=== PATIENT | female | born 1985 | race Caucasian/White ===

== ENCOUNTER → 2017-03-19 14:22 | Outpatient (CLI) | payer BC | END | disposition home or self-care (01) | LOC: D.US 14:00 → D.NM 16:00 | DX: R10.9 Unspecified abdominal pain (principal) ==

== ENCOUNTER → 2018-01-25 09:47 | Outpatient (CLI) | payer BC | END | disposition home or self-care (01) | LOC: D.LDO 09:47 | DX: O21.9 Vomiting of pregnancy, unspecified (principal); Z3A.00 Weeks of gestation of pregnancy not specified ==

== ENCOUNTER → 2018-04-10 10:14 | Outpatient (CLI) | payer BC ==
[2018-04-10 11:35] LABS: APPEARANCE CLOUDY (CLEAR); BILIRUBIN NEGATIVE (NEGATIVE); COLOR YELLOW (YELLOW); GLUCOSE NEGATIVE (NEGATIVE); KETONE NEGATIVE (NEGATIVE); NITRITE NEGATIVE (NEGATIVE); PROTEIN NEGATIVE (NEGATIVE); UROBILINOGEN NORMAL (NORMAL)
[2018-04-10 11:37] LABS: BACTERIA MANY /hpf (NONE SEEN); MUCUS <1+ /lpf (NONE SEEN); RED CELLS - URINE RARE /hpf (0-5)
[2018-04-10 11:40] LABS: BASOPHILS 0.1 % (0-2); EOSINOPHILS 1.1 % (0-7); HEMATOCRIT 33.9 % (36.0-48.0); IMMATURE GRANULOCYTES 0.4 % (0-5); LYMPHOCYTES 22.4 % (15-50); MCH 31.4 pg (26.0-34.0); MCHC 35.4 g/dL (31.0-37.0); MCV 88.7 fL (80.0-100.0); MEAN PLATELET VOLUME 9.6 fL (7.4-10.4); MONOCYTES 7.6 % (2-11); NEUTROPHILS 68.4 % (40-80); PLATELET COUNT 350 10x3/uL (130-400); RBC 3.82 10x6/uL (4.00-5.40); RDW 12.6 % (11.5-14.5); WBC 8.6 10x3/uL (4.8-10.8)
== END | disposition home or self-care (01) ==
LOC: D.LDO 10:14
PROVIDERS: Obstetrics & Gynecology
DX: O26.892 Other specified pregnancy related conditions, second trimester (principal); Z3A.21 21 weeks gestation of pregnancy; M54.5 Low back pain; R10.30 Lower abdominal pain, unspecified

== ENCOUNTER → 2018-04-23 10:18 | Outpatient (CLI) | payer BC ==
[2018-04-23 11:48] LABS: APPEARANCE HAZY (CLEAR); BACTERIA MODERATE /hpf (NONE SEEN); BILIRUBIN NEGATIVE (NEGATIVE); COLOR YELLOW (YELLOW); EPITHELIAL CELLS 0-5 /hpf (0-5); GLUCOSE NEGATIVE (NEGATIVE); KETONE NEGATIVE (NEGATIVE); MUCUS <1+ /lpf (NONE SEEN); NITRITE NEGATIVE (NEGATIVE); PROTEIN NEGATIVE (NEGATIVE); SPECIFIC GRAVITY 1.005 (1.005-1.020); UROBILINOGEN NORMAL (NORMAL); WHITE CELLS - URINE 0-5 /hpf (0-5)
== END | disposition home or self-care (01) ==
LOC: D.LDO 10:18
PROVIDERS: Obstetrics & Gynecology
DX: O26.899 Other specified pregnancy related conditions, unspecified trimester (principal); Z3A.00 Weeks of gestation of pregnancy not specified

== ENCOUNTER → 2018-05-15 14:57 | Outpatient (CLI) | payer BC ==
[2018-05-15 16:59] LABS: MCH 30.7 pg (26.0-34.0); MCHC 34.4 g/dL (31.0-37.0); MCV 89.4 fL (80.0-100.0); MEAN PLATELET VOLUME 9.8 fL (7.4-10.4); RBC 3.58 10x6/uL (4.00-5.40); RDW 12.8 % (11.5-14.5); WBC 12.2 10x3/uL (4.8-10.8)
[2018-05-15 17:06] LABS: CALC OSMOLALITY 268 mosm/kg (275-300); CALCIUM 8.6 mg/dL (8.5-10.1); CARBON DIOXIDE 24.6 mmol/L (21.0-32.0); CHLORIDE - SERUM 102 mmol/L (98-107); CREATININE - SERUM 0.5 mg/dL (0.6-1.3); GLUCOSE 65 mg/dL (74-106); SODIUM 137 mmol/L (136-145); UREA NITROGEN 4 mg/dL (7-18); eGFR NON AFRICAN AMERICAN > 90 mL/min (90-120)
== END | disposition home or self-care (01) ==
LOC: D.LDO 14:57
PROVIDERS: Obstetrics & Gynecology
DX: O26.899 Other specified pregnancy related conditions, unspecified trimester (principal); Z3A.00 Weeks of gestation of pregnancy not specified

== ENCOUNTER → 2018-05-30 12:23 | Outpatient (CLI) | payer BC ==
[~2018-05-30 12:23] MED LIST: MOBIC7.5 MG PO; OXYCODONE-APAP1 T10 PO; PEPCID40 MG PO
[2018-06-03 20:37] VITALS: BMI 31.7
== END | disposition home or self-care (01) ==
LOC: D.LDO 12:23
DX: O26.899 Other specified pregnancy related conditions, unspecified trimester (principal); Z3A.00 Weeks of gestation of pregnancy not specified

== ENCOUNTER → 2018-05-31 09:42 | Outpatient (CLI) | payer BC ==
[~2018-05-31 09:42] MED LIST changes: -MOBIC7.5 MG PO; -OXYCODONE-APAP1 T10 PO
== END | disposition home or self-care (01) ==
LOC: D.LDO 09:42
DX: O26.899 Other specified pregnancy related conditions, unspecified trimester (principal); Z3A.00 Weeks of gestation of pregnancy not specified

== ENCOUNTER 2018-06-03 09:57 | Inpatient (IN) | payer BC ==
[~2018-06-03] VITALS: Ht 160 cm; Wt 81.2 kg
[2018-06-03 11:44] LABS: BASOPHILS 0.2 % (0-2); EOSINOPHILS 0.3 % (0-7); HEMATOCRIT 31.7 % (36.0-48.0); HEMOGLOBIN 10.8 g/dL (12-16); IMMATURE GRANULOCYTES 0.5 % (0-5); LYMPHOCYTES 19.7 % (15-50); MCHC 34.1 g/dL (31.0-37.0); MCV 88.1 fL (80.0-100.0); MEAN PLATELET VOLUME 10.2 fL (7.4-10.4); MONOCYTES 12.3 % (2-11); PLATELET COUNT 326 10x3/uL (130-400); RDW 12.4 % (11.5-14.5); WBC 13.1 10x3/uL (4.8-10.8)
[2018-06-03 12:02] LABS: ALBUMIN 2.3 g/dL (3.4-5.0); BILIRUBIN - DIRECT 0.06 mg/dL (0.00-0.30); BILIRUBIN - INDIRECT 0.08 mg/dL (0.00-1.00); BILIRUBIN - TOTAL 0.14 mg/dL (0.2-1.3); PROTEIN - SERUM 6.5 g/dL (6.4-8.2); URIC ACID 5.2 mg/dL (2.6-7.2)
[2018-06-03 12:17] LABS: APPEARANCE CLEAR (CLEAR); BILIRUBIN NEGATIVE (NEGATIVE); COLOR STRAW (YELLOW); GLUCOSE NEGATIVE (NEGATIVE); KETONE NEGATIVE (NEGATIVE); NITRITE NEGATIVE (NEGATIVE); PROTEIN NEGATIVE (NEGATIVE); SPECIFIC GRAVITY 1.005 (1.005-1.020); UROBILINOGEN NORMAL (NORMAL)
[2018-06-03 15:28] LABS: BASOPHILS 0.1 % (0-2); EOSINOPHILS 0.2 % (0-7); HEMATOCRIT 32.8 % (36.0-48.0); HEMOGLOBIN 11.6 g/dL (12-16); IMMATURE GRANULOCYTES 0.5 % (0-5); LYMPHOCYTES 13.3 % (15-50); MCH 30.8 pg (26.0-34.0); MCHC 35.4 g/dL (31.0-37.0); MEAN PLATELET VOLUME 10.2 fL (7.4-10.4); MONOCYTES 7.9 % (2-11); PLATELET COUNT 342 10x3/uL (130-400); RBC 3.77 10x6/uL (4.00-5.40); RDW 12.7 % (11.5-14.5); WBC 14.3 10x3/uL (4.8-10.8)
[2018-06-03 17:14] VITALS: BP 129/71
[2018-06-03 20:37] VITALS: BP 127/75; Ht 160 cm; Wt 81.2 kg
[2018-06-03] MEDS ORDERED: PEPCID40 MG PO (21:07)
[2018-06-04] VITALS (7 sets, daily range): BP systolic 112–133; BP diastolic 60–83
--- NOTE | 2018-06-04 10:40 | OP ---
PATIENT NAME: HERNAN WOODS MEDICAL RECORD: [id number] :86 LOCATION:[id number] ADMISSION DATE:06/03/18 SURGEON: HUEY ORTEGA MD DATE OF OPERATION: 06/03/2018 PREOPERATIVE DIAGNOSES: 1. at 29 weeks' gestation. 2. Nonreassuring surveillance. 3. -induced hypertension. POSTOPERATIVE DIAGNOSES: 1. at 29 weeks' gestation. 2. Nonreassuring surveillance. 3. -induced hypertension. 4. Meconium stained fluid. 5. Nuchal cord. PROCEDURE: Primary low transverse section. SURGEON: Huey Ortega MD CITY CARRIER ASSISTANT: Dr. Lara CAREER DEVELOPMENT MANAGER: Ralph Millan. ANESTHESIOLOGIST: Dr. Sena ANESTHETIC: General. FINDINGS: Viable female infant and light meconium-stained fluid found in a back down transverse lie. Weight 950 grams. Uterine anatomy was unremarkable as well as the tubes and ovaries. SPECIMENS REMOVED: Placenta. SPECIMEN DISPOSITION: Pathology. ESTIMATED BLOOD LOSS: 600 cc. FLUIDS: 1200 cc of normal saline. URINE OUTPUT: 100 cc of clear urine. COMPLICATIONS: None. DRAIN: Horta to gravity. INDICATIONS: The patient is a multiparous female with prior delivery at 25 weeks. The patient is currently at 29 weeks, being observed for borderline growth with NST. The patient had repetitive late decelerations and a prolonged decel. The patient also had a biophysical profile of 04/10. The patient is considered for urgent section and any indicated procedure. DESCRIPTION OF PROCEDURE: After informed consent was given, the patient was taken to the operating room where anesthetic was obtained for rapid sequence OPERATIVE REPORT [id number] HERNAN WOODS induction. Upon release, a low transverse incision was made on the abdomen, carried to the underlying layer of the fascia, which was opened in the midline with scalpel and extended laterally with Alfonso scissors. The rectus bellies were dissected free superiorly and inferiorly and then in the midline. A DeLee all-purpose retractor was now inserted after opening the peritoneum and low transverse hysterotomy was performed. The infant was found to be from breech into a transverse back down position and the uterine incision was T'd. After delivery of the infant, the cord was doubly clamped and cut and infant was passed to the attendant. The placenta was delivered via Crede maneuver. Uterus exteriorized, cleared of all clot and debris. The uterus was now closed in a running locked fashion with chromic stitch. After this had been performed, pelvis was irrigated and irrigant removed. Uterus was returned to the abdomen and inspection of the hysterotomy reveals adequate hemostasis. Fascia was now closed in a running fashion. After closure of the fascia, subcutaneous tissues inspected. Bleeding vessels cauterized, and the skin was reapproximated with chandni. Sponge, lap and needle count was correct times 2 at the close of this procedure, but due to the urgency, x-ray was performed and is unremarkable. TRANSINT:[id number] Voice Confirmation ID: [id number] DOCUMENT ID: [id number] HUEY ORTEGA MD at 1040 CC: [id number] DICTATION DATE: 06/04/18605 [employer]OL [employer] ATTENDANT: 06/04/18 0859 ADM IN [facility] [address] [place] [address]
[2018-06-05] MEDS ORDERED: MOBIC7.5 MG PO (07:51)
[2018-06-05] MEDS ORDERED: OXYCODONE-APAP1 T10 PO (07:52)
== END 2018-06-05 08:20 | disposition home or self-care (01) | DRG 788 ==
LOC: D.LDO 09:57 → D.SDCHOLD 15:59 → D.LD 15:59
PROVIDERS: ADMIT Obstetrics & Gynecology
PROC: 10D00Z1 Extraction of Products of Conception, Low, Open Approach (ICD-10-PCS; principal; 2018-06-03 15:50)
DX: O76 Abnormality in fetal heart rate and rhythm complicating labor and delivery (principal); Z3A.29 29 weeks gestation of pregnancy; Z37.0 Single live birth; O13.4 Gestational [pregnancy-induced] hypertension without significant proteinuria, complicating childbirth; O69.81X0 Labor and delivery complicated by cord around neck, without compression, not applicable or unspecified; O77.0 Labor and delivery complicated by meconium in amniotic fluid

== ENCOUNTER 2019-09-24 15:04 | Outpatient (CLI) | payer BC ==
[~2019-09-24] VITALS: Ht 160 cm; Wt 81.8 kg
[~2019-09-24 15:04] MED LIST changes: +MOBIC7.5 MG PO; +OXYCODONE-APAP1 T10 PO
--- NOTE | 2019-09-24 15:15 | NUR ---
CALL TO UNIT REC'D FROM [place] IN [facility] TO FIND OUT IF PT HAS FULL BLADDER, INFORMED THAT PT HAD EMPTIED BLADDER UPON ARRIVAL TO UNIT. [place] SNACHEZ RN PROVIDED PT WITH GLASS OF WATER AND STATES THAT SHE WILL COME TO UNIT AT 1600 TO BRING PT TO [facility]/S.
[2019-09-24 15:31] VITALS: BP 122/68; Ht 160 cm; Wt 81.8 kg
--- NOTE | 2019-09-24 16:10 | NUR ---
[place] WITH [facility] ON UNIT. PT OFF UNIT WITH [facility]/S VIA W/C. REPORTS INCREASED PAIN WHEN GOING FROM LAYING TO STANDING.
--- NOTE | 2019-09-24 17:04 | NUR ---
REC'D BACK TO UNIT FROM [facility]/S. CONTINUES TO C/O LLQ AND LEFT SIDED PELVIC PAIN, CONSTANT, SHARP AND STABBING AT TIMES "THEN IT STARTS CRAMPING." RATES PAIN 5-6/10, DENIES NEED FOR INTERVENTION. WATER REMOVED FROM ROOM. BED IN LOW POSITION WITH SRUP X2. CALL LIGHT AND PHONE WITHIN REACH. WILL CONTINUE TO MONITOR.
--- NOTE | 2019-09-24 17:12 | NUR ---
REPORT CALLED TO DR. ORTEGA WITH [facility] REPORT. ORDERS REC'D TO D/C PT HOME WITH INSTRUCTIONS TO RETURN TO ER WITH ANY BLEEDING OR WORSENING PAIN.
--- NOTE | 2019-09-24 17:30 | NUR ---
DISCHARGE INSTRUCTIONS REVIEWED WITH PT WITH REINFORCEMENT GIVEN REGARDING RETURNING TO LAB FOR ORDERED LAB DRAW TO BE DONE ON 09/26/19 AT 1300, VERBALIZES UNDERSTANDING. AMBULATORY OFF UNIT, DENIES NEED FOR W/C OFF UNIT, STEADY GAIT NOTED
== END 2019-09-24 17:30 | disposition home or self-care (01) ==
LOC: D.LDO 15:04
PROVIDERS: ATTEND Obstetrics & Gynecology
DX: O09.90 Supervision of high risk pregnancy, unspecified, unspecified trimester (principal)

== ENCOUNTER → 2019-09-26 13:00 | Outpatient (CLI) | payer BC ==
[2019-09-24 15:31] VITALS: BMI 31.9
[~2019-09-26 13:00] MED LIST changes: +PERCOCET 7.5/321 TAB PO; +TORADOL10 MG PO
== END | disposition home or self-care (01) ==
LOC: D.LAB 13:00 → D.LABREF 14:45
PROVIDERS: ATTEND Obstetrics & Gynecology
DX: O09.90 Supervision of high risk pregnancy, unspecified, unspecified trimester (principal); Z3A.00 Weeks of gestation of pregnancy not specified

== ENCOUNTER 2019-09-28 13:40 | Outpatient (CLI) | payer BC ==
[2019-09-24 15:31] VITALS: BMI 31.9
[~2019-09-28 13:40] MED LIST changes: -PERCOCET 7.5/321 TAB PO; -TORADOL10 MG PO
[2019-09-29] MEDS ORDERED: TORADOL10 MG PO (20:32)
[2019-09-29] MEDS ORDERED: PERCOCET 7.5/321 TAB PO (20:33)
== END 2019-09-28 14:02 | disposition home or self-care (01) ==
LOC: D.LDO 13:40
PROVIDERS: ATTEND Obstetrics & Gynecology
DX: O26.899 Other specified pregnancy related conditions, unspecified trimester (principal); Z3A.00 Weeks of gestation of pregnancy not specified; R10.9 Unspecified abdominal pain

== ENCOUNTER 2019-09-29 13:26 | Day surgery (SDC) | payer BC ==
[~2019-09-29] VITALS: Ht 160 cm; Wt 82.7 kg
--- NOTE | ~2019-09-29 | OP ---
PATIENT NAME: HERNAN WOODS MEDICAL RECORD: [id number] :86 LOCATION:D[facility] ADMISSION DATE: SURGEON: ABHIJEET ORTEGA MD DATE OF OPERATION: 09/29/2019 DATE OF SERVICE: 09/29/2019 PREOPERATIVE DIAGNOSES: 1. Suspected ectopic. 2. Undesired fertility. POSTOPERATIVE DIAGNOSES: 1. Right ectopic . 2. Unwanted fertility. 3. Left simple cyst. PROCEDURE PERFORMED: 1. Diagnostic laparoscopy. 2. Cystotomy. 3. Bilateral salpingectomy. SURGEON: Abhijeet Ortega MD DENTAL HYGIENIST MOBILE COORDINATOR: Sachin Ngo. ANESTHESIOLOGIST: Dr. Valiente. ANESTHESIA: General. FINDINGS: There is a left simple cyst approximately 3-4 cm. The left tube was unremarkable as well as the uterus and ovaries. What was visualized of the abdominal anatomy was unremarkable. A small isthmic ectopic was identified. There was minimal blood in the pelvis and abdomen. SPECIMENS REMOVED: Bilateral tube. SPECIMEN DISPOSITION: Pathology. ESTIMATED BLOOD LOSS: Minimal. FLUIDS: 1000 cc lactated Ringer's. URINE OUTPUT: Quantity sufficient void prior to this procedure. COMPLICATIONS: None. DRAINS: None. INDICATIONS: The patient is a 33-year-old G3, P0-2-0-2 at approximately 6 weeks' gestation from last menstrual period with complaints of right-sided pelvic pain. The patient had been seen previously in the clinic for left-sided pelvic pain where cyst was identified and quantitative hCG was below the discriminatory zone. Repeat quantitative hCGs failed to have appropriate doubling and when the level was above the discriminatory zone nothing seen in the uterus. The patient was consented for diagnostic laparoscopy with suspected OPERATIVE REPORT [id number] HERNAN WOODS ectopic. The patient has unwanted fertility and requests a bilateral salpingectomy at the time of the surgery. DESCRIPTION OF PROCEDURE: The patient was taken to the operating room where anesthetic was obtained without difficulty. The patient was supine on the table and prepped and draped. An incision was made at the umbilicus to accommodate a 5-mm trocar, which was inserted without difficulty. Pneumoperitoneum was developed. Accessory ports were now placed in the midline and right lower quadrant. Through the midline, with the patient in Trendelenburg and bowel swept free of the pelvis the tubes are visualized with the above findings. The right tube was elevated from the midline and using a Harmonic scalpel the mesosalpinx was compressed, coagulated, and . The dissection was carried out underneath the right tube and the tube was removed at its attachment to the uterus. This tube was pulled free of the pelvis. The ectopic was present in the right tube. Attention was now directed to the left tube. Again, from the midline, the left tube was elevated and using a Harmonic scalpel, the left tube was removed beginning this time at the cornual region and working laterally. Once this tube was removed and taken from the pelvis, the operative field was inspected and found to be hemostatic. The pneumoperitoneum was released as the trocars. The accessory trocars were removed under visualization. The primary trocar was now removed and all sites were closed with a subcuticular stitch. Dermabond was applied. Sponge, lap, and needle counts were correct times 2. TRANSINT:[id number] Voice Confirmation ID: [id number] DOCUMENT ID: [id number] ABHIJEET ORTEGA MD CC: [id number] DICTATION DATE: 10/09/19834 CUSTOMER ACQUISITION SPECIALIST: 10/09/19 1048 [facility] 09/29/19 [id number] [place] [address]
[2019-09-29 13:58] VITALS: BP 120/73; Ht 160 cm; Wt 82.7 kg
--- NOTE | 2019-09-29 14:45 | NUR ---
IV STARTED TO RIGHT AC, WITH 20 G CATH X 1 ATTEMPT, WITH FIRST LR 1000 ML UP AND INFUSING PER ORDER. NO REDNESS OR SWELLING NOTED TO IV SITE.
--- NOTE | 2019-09-29 14:50 | NUR ---
CHLORHEXADINE WIPES COMPLETED, BILATERAL SCD'S PLACED. SURGERY CHECKLIST COMPLETED. SEE EMAR FOR ALL MEDS ADM BY THIS RN. PT LAUGHING, TALKING WITH SIG OTHER, AND DENIES ALL NEEDS AT THIS TIME. PT STATES "I HOPE HE TAKES IT ALL OUT, WE'VE TALKED ABOUT IT". PT STATING "DR. ORTEGA IS THE BEST, I JUST LOVE THAT MAN". SRUP X2, CALL LIGHT AND PHONE WITHIN REACH.
--- NOTE | 2019-09-29 15:27 | NUR ---
SURGERY HERE TO TAKE PT FOR DIAGNOSTIC LAP, AND BILATERAL SALPINGECTOMY WITH DR. ORTEGA.
[2019-09-29 15:39] LABS: BASOPHILS 0.4 % (0-2); EOSINOPHILS 1.1 % (0-7); HEMATOCRIT 37.1 % (36.0-48.0); HEMOGLOBIN 12.3 g/dL (12-16); IMMATURE GRANULOCYTES 0.1 % (0-5); MCH 28.5 pg (26.0-34.0); MCHC 33.2 g/dL (31.0-37.0); MCV 86.1 fL (80.0-100.0); MEAN PLATELET VOLUME 8.8 fL (7.4-10.4); MONOCYTES 8.8 % (2-11); NEUTROPHILS 54.6 % (40-80); PLATELET COUNT 385 10x3/uL (130-400); RBC 4.31 10x6/uL (4.00-5.40); RDW 13.6 % (11.5-14.5); WBC 7.4 10x3/uL (4.8-10.8)
[2019-09-29 17:29] VITALS: BP 102/63
--- NOTE | 2019-09-29 17:30 | NUR ---
RECEIVED PT TO LABOR AND DELIVERY POST DIAGNOSTIC LAP/BILATERAL SALPINGECTOMY BY DR. ORTEGA. PT HAS LAP INCISIONS NOTED TO BE C/D/I. PT DENIES N/V, SOB OR DIFFICULTY BREATHING. PT SERVED JOSLYN Chu Shu CHEHALIS AT HER REQUEST. ABDOMEN PALPATES SOFT, BOWEL SOUNDS ACTIVE X4, LUNGS ARE CTA IN ALL QUADRANTS. SRUP X2, CALL LIGHT AND PHONE WITHIN REACH.
[2019-09-29 18:00] VITALS: BP 104/68
--- NOTE | 2019-09-29 18:30 | NUR ---
PT ASKS TO GET UP TO THE BATHROOM. IV DC'D AT HER REQUEST, ASSISTED UP, GAIT STEADY, PT AWAKE, AND ALERT. PT THEN VOIDS 300 ML'S IN [place] HAT, LIGHT YELLOW URINE. PT IS DRESSING FOR DISCHAGE, STATES "I AM READY TO GO HOME". PT HAS EATEN SMALL AMOUNT OF HER BROTH, AND THEN SMALL AMOUNTS OF REGULAR SUPPER. DENIES N/V, DIZZINESS OR SOB. SIG OTHER AT BEDSIDE. SRUP X2, CALL LIGHT AND PHONE WITHIN REACH.
--- NOTE | 2019-09-29 19:15 | NUR ---
REPORT GIVEN TO Earnest ARTIS RN.
[2019-09-29] MEDS ORDERED: TORADOL10 MG PO (20:32)
[2019-09-29] MEDS ORDERED: PERCOCET 7.5/321 TAB PO (20:33)
--- NOTE | 2019-09-29 20:45 | NUR ---
DISCHARGE INSTRUCTIONS GIVEN AT THIS TIME WITH UNDERSTANDING VERBALIZED. DISCHARGE PAPERWORK SIGNED AND COPY GIVEN TO PATIENT. PT REC'D PRESCRIPTIONS FOR TORADOL AND PERCOCET. NO DISTRESS NOTED. PT AMBULATORY FROM UNIT AT 2050. Alexis ARTIS RN
== END 2019-09-29 20:51 | disposition home or self-care (01) ==
LOC: D.OPS 13:26 → D.LD 13:29 → D.OPS 20:51
PROVIDERS: ATTEND Obstetrics & Gynecology
DX: O00.101 Right tubal pregnancy without intrauterine pregnancy (principal); Z30.2 Encounter for sterilization; N83.202 Unspecified ovarian cyst, left side

== ENCOUNTER 2019-11-24 10:26 | Inpatient (IN) | payer BC ==
[~2019-11-24] VITALS: Ht 160 cm; Wt 79.5 kg
[~2019-11-24 10:26] MED LIST changes: +PERCOCET 7.5/321 TAB PO; +TORADOL10 MG PO
[2019-11-24 10:54] VITALS: BP 112/74
[2019-11-24 11:25] LABS: BASOPHILS 0.1 % (0-2); EOSINOPHILS 1.9 % (0-7); HEMATOCRIT 37.1 % (36.0-48.0); HEMOGLOBIN 11.8 g/dL (12-16); IMMATURE GRANULOCYTES 0.1 % (0-5); LYMPHOCYTES 25.2 % (15-50); MCH 27.3 pg (26.0-34.0); MCHC 31.8 g/dL (31.0-37.0); MCV 85.9 fL (80.0-100.0); MEAN PLATELET VOLUME 8.9 fL (7.4-10.4); MONOCYTES 6.7 % (2-11); PLATELET COUNT 440 10x3/uL (130-400); RBC 4.32 10x6/uL (4.00-5.40); RDW 13.6 % (11.5-14.5); WBC 7.7 10x3/uL (4.8-10.8)
[2019-11-24 11:32] LABS: CALC OSMOLALITY 272 mosm/kg (275-300); CALCIUM 8.5 mg/dL (8.5-10.1); CARBON DIOXIDE 29.7 mmol/L (21.0-32.0); CHLORIDE - SERUM 103 mmol/L (98-107); CREATININE - SERUM 0.7 mg/dL (0.6-1.3); GLUCOSE 91 mg/dL (74-106); POTASSIUM - SERUM 3.9 mmol/L (3.5-5.1); SODIUM 138 mmol/L (136-145); UREA NITROGEN 5 mg/dL (7-18); eGFR NON AFRICAN AMERICAN > 90 mL/min (90-120)
[2019-11-24 11:38] LABS: ALBUMIN 3.5 g/dL (3.4-5.0); ALKALINE PHOSPHATASE 69 U/L (30-120); ALT (SGPT) 26 U/L (10-68); BILIRUBIN - TOTAL 0.24 mg/dL (0.2-1.3); PROTEIN - SERUM 6.9 g/dL (6.4-8.2)
[2019-11-24 13:29] VITALS: BP 112/74; Ht 160 cm; Wt 79.5 kg
[2019-11-24 16:46] VITALS: BP 118/67
[2019-11-24 16:49] LABS: NITRITE NEGATIVE (NEGATIVE)
[2019-11-24 16:50] LABS: BILIRUBIN NEGATIVE (NEGATIVE); GLUCOSE NEGATIVE (NEGATIVE); KETONE NEGATIVE (NEGATIVE); UROBILINOGEN NORMAL (NORMAL)
--- NOTE | 2019-11-24 18:52 | NUR ---
A&O RESTING IN BED WITH EYES OPEN. NO C/O PAIN. NO S/S OF ACUTE DISTRESS NOTED. DENIES ANY NEEDS A THIS TIME. CALL LIGHT IN REACH. WILL CONTINUE TO MONITOR.
[2019-11-24 20:00] VITALS: BP 112/75
[2019-11-25] VITALS: BP 108/49
[2019-11-25 06:00] LABS: BASOPHILS 0.5 % (0-2); EOSINOPHILS 4.4 % (0-7); HEMOGLOBIN 11.1 g/dL (12-16); IMMATURE GRANULOCYTES 0.2 % (0-5); LYMPHOCYTES 41.9 % (15-50); MCH 27.3 pg (26.0-34.0); MCHC 31.7 g/dL (31.0-37.0); MEAN PLATELET VOLUME 8.9 fL (7.4-10.4); MONOCYTES 9.2 % (2-11); NEUTROPHILS 43.8 % (40-80); PLATELET COUNT 377 10x3/uL (130-400); RBC 4.07 10x6/uL (4.00-5.40); RDW 13.7 % (11.5-14.5); WBC 5.9 10x3/uL (4.8-10.8)
[2019-11-25 06:16] LABS: INR 1.03 (0.85-1.17); PROTIME 13.4 SECONDS (11.6-15.0)
[2019-11-25 06:17] LABS: D-DIMER-QUANTITATIVE 0.37 ug/mLFEU (0.20-0.54)
[2019-11-25 06:27] LABS: CALC OSMOLALITY 275 mosm/kg (275-300); CALCIUM 8.2 mg/dL (8.5-10.1); CARBON DIOXIDE 26.2 mmol/L (21.0-32.0); CHLORIDE - SERUM 107 mmol/L (98-107); CREATININE - SERUM 0.7 mg/dL (0.6-1.3); GLUCOSE 97 mg/dL (74-106); PHOSPHOROUS 3.2 mg/dL (2.5-4.9); PRO BNP 57 pg/mL (0-125); SODIUM 140 mmol/L (136-145); UREA NITROGEN 5 mg/dL (7-18); eGFR NON AFRICAN AMERICAN > 90 mL/min (90-120)
[2019-11-25 08:41] VITALS: BP 106/60
--- NOTE | 2019-11-25 09:22 | NUR ---
SHE REFUSED THE LOVENOX INJECTION, SHE STATES " I DON'T LIKE TO TAKE MEDICATIONS". I EXPLAINED TO HER WHAT IT IS FOR AND SHE SAYS SHE WALKS TO THE BATHROOM. SHE IS ON 2 LITERS NC. THE CALL LIGHT IS WITHIN REACH.
[2019-11-25 12:07] VITALS: BP 110/68
[2019-11-25 16:42] VITALS: BP 121/73
[2019-11-25 20:00] VITALS: BP 99/40
[2019-11-26] VITALS: BP 118/70
--- NOTE | 2019-11-26 04:51 | NUR ---
ALERT AND ORENTED X4. UP AT LUCINA IV TO LEFT FOREARM WITH NS AT 100 STATED IT WAS UNCOMFERTABLE IV FLUIDS STOPED . NO FUTHER COMPLAINTS. DRINKING FLUIDS AND UP WALKING AROUND. ON ROOM AIR. NO DISTRESS NOTED OR STATED. CALL LIGHT AND WATER IN REACH.
[2019-11-26 05:33] LABS: BASOPHILS 0.3 % (0-2); EOSINOPHILS 2.4 % (0-7); HEMATOCRIT 35.8 % (36.0-48.0); HEMOGLOBIN 11.4 g/dL (12-16); IMMATURE GRANULOCYTES 0.2 % (0-5); LYMPHOCYTES 34.3 % (15-50); MCH 27.5 pg (26.0-34.0); MCHC 31.8 g/dL (31.0-37.0); MCV 86.3 fL (80.0-100.0); MEAN PLATELET VOLUME 8.8 fL (7.4-10.4); NEUTROPHILS 53.8 % (40-80); PLATELET COUNT 399 10x3/uL (130-400); RBC 4.15 10x6/uL (4.00-5.40); RDW 13.7 % (11.5-14.5); WBC 6.6 10x3/uL (4.8-10.8)
[2019-11-26 05:47] LABS: CALC OSMOLALITY 274 mosm/kg (275-300); CALCIUM 8.4 mg/dL (8.5-10.1); CARBON DIOXIDE 25.6 mmol/L (21.0-32.0); CHLORIDE - SERUM 107 mmol/L (98-107); CREATININE - SERUM 0.7 mg/dL (0.6-1.3); GLUCOSE 89 mg/dL (74-106); PHOSPHOROUS 3.3 mg/dL (2.5-4.9); POTASSIUM - SERUM 3.9 mmol/L (3.5-5.1); SODIUM 139 mmol/L (136-145); eGFR NON AFRICAN AMERICAN > 90 mL/min (90-120)
[2019-11-26 05:54] LABS: UREA NITROGEN 8 mg/dL (7-18)
[2019-11-26 09:11] VITALS: BP 100/50
--- NOTE | 2019-11-26 09:59 | NUR ---
DR. GONZALES IS ROUNDING, SHE CAN GO HOME FORM HIS STANDPOINT, ON ORAL ANTIBIOTICS. THE CALL LIT IS WITHIN REACH. DENIES ANY NEEDS. WAITING ON PRIMARY DOCTOR TO DISCHARGE HER.
[2019-11-26] MEDS ORDERED: DOXYCYCLINE HY100 M2 PO (11:35)
[2019-11-26] MEDS ORDERED: LEVOFLOXACIN500 MG PO (11:35)
[2019-11-26] MEDS ORDERED: MUCINEX600 MG PO (11:36)
[2019-11-26] MEDS ORDERED: TESSALON PERLE100 MG PO (11:37)
[2019-11-26] MEDS ORDERED: FLUTICASONE PRO16 GM NASAL (11:37)
[2019-11-26] MEDS ORDERED: SYMBICORT 80-10.2 GM INH (11:38)
[2019-11-26] MEDS ORDERED: PREDNISONE10 MG PO (11:40)
[2019-11-26 12:22] VITALS: BP 102/68
--- NOTE | 2019-11-26 14:10 | NUR ---
iv removed, discharge paperwork gone over with, questions answered. taken to the front door via wheelchair.
== END 2019-11-26 14:11 | disposition home or self-care (01) | DRG 202 ==
LOC: D.MS 10:26
PROVIDERS: Family Medicine; ADMIT Family Medicine; ATTEND Family Medicine
DX: J20.9 Acute bronchitis, unspecified (principal); J18.9 Pneumonia, unspecified organism; J30.2 Other seasonal allergic rhinitis; R09.82 Postnasal drip